=== PATIENT | female | born 1935 | race Caucasian/White ===

== ENCOUNTER → 2017-05-19 | Outpatient (CLI) | payer OTHER | LOC: RAD 11:50 | DX: M25.552 Pain in left hip (principal) ==

== ENCOUNTER → 2017-08-06 | Outpatient (CLI) | payer OTHER ==
[~2017-08-06] VITALS: Ht 162.6 cm; Wt 87.9 kg
[~2017-08-06] MED LIST: ALENDRONATE SOD70 MG PO; ASPIRIN81 M2 PO; BIOTIN5000 MC1 PO; CARVEDILOL3.125 MG PO; CENTRUM SILVER1 EAC4 PO; CITRACAL + D M1 EACH PO; COQ-10100 MG PO; CRANBERRY200 MG PO; GLUCOSAMINE &1 EACH PO; HYDROCODON-ACE1 EAC7 PO; LANTUS100 UNIT/M SUBQ; LIPITOR 20 MG T20 M1 PO; LISINOPRIL-HCT1 EACH PO; LUTEIN-ZEAXANT1 EAC1 PO; MAGOX 400400 MG PO; MEDROLDOSEPACK PO; METFORMIN HCL500 MG PO; OMEPRAZOLE 20 M20 M1 PO; POTASSIUM GLUC500 MG PO; PROBIOTIC1 EAC1 PO; RED YEAST RICE30 GM PO; SV FLAXSEED OI1 EACH PO; VITAMIN D3400 UNIT PO
--- NOTE | ~2017-08-06 | HPC ---
[facility] [place] [address] PAIN MANAGEMENT CONSULTATION Name: MATTYEPI LAURA Room #: REG TERRY Kaveh#: [id number] Admission: 08/06/17 Attend Phys: Dorene Francisco MD Discharge: Date of : 36 Report #: [id number] THIS REPORT FOR: //name// CC: Tristian Francisco DATE OF SERVICE: 08/06/2017 FOLLOWUP COMPLAINT: "Pain in my lower back and down into my left leg after opening the door." FOLLOWUP HISTORY: The patient is an 82-year-old female who has been referred to the Pain Clinic because of pain and discomfort which she is experiencing in her lower back and down into her left foot. She has not had pain similar to this in the past. She has noticed over the last few weeks worsening of her pain. An MRI was sought. She was told that she has had some narrowing of the disk in her back and the patient has been referred to the Pain Clinic for evaluation. She notes that the pain is worse when she is walking and sitting, and describes as burning, shooting, and sharp. Rates it as an 8/10 at this juncture. She is a bit concerned because of the pain radiating down into her hip. She is scheduled to go on a boat tour in [place] on 08/16/2017. Denies any bowel or bladder dysfunction. She has not had back surgery. The patient has undergone treatment with a chiropractor in the upper back and extremities. ALLERGIES: No known drug allergies. CURRENT MEDICATIONS: Multivitamin, Centrum Silver, vitamin D3 400 units, red rice extract 30 grams powder, potassium gluconate 500 mg daily, lactobacillus probiotic, omeprazole 20 mg capsule, magnesium 400 mg, lutein/zeaxanthin 20/1, biotin 5000 mcg, chondroitin and glucosamine, flaxseed oil, omega 1300 mg, cranberry extract 200 mg, CoQ10 100 mg, Citracal plus D maximum caplet, enteric aspirin 81 mg, insulin Lantus 35 units subq b.i.d., metformin 500 mg b.i.d. with meals, lisinopril/hydrochlorothiazide 10/12.5, Lipitor 20 mg, alendronate 70 mg tablets weekly, Coreg 3.125 b.i.d. with meals. PAST MEDICAL HISTORY: Diabetes, hypertension, joint disease/arthritis. PAST SURGICAL HISTORY: Appendectomy in 1942, knee surgery in 2010. SOCIAL HISTORY: She is retired, retired in 1999. DIAGNOSTIC DATA: MRI of the lumbar spine dated 07/26/2017: 1. L3-L4: Minimal disk narrowing without significant disk bulge or disk protrusion. Moderate facet arthropathy. Mild bilateral neural foraminal encroachment. Thecal sac 1.2 [place] [address] PAIN MANAGEMENT CONSULTATION Name: EPI STARR [id number] Admission: 08/06/17 Attend Phys: Dorene Francisco MD Discharge: Date of : 36 Report #: [id number] 2. L4-L5: Grade 1/2 anterolisthesis deformity. No spondylosis. Advanced facet arthropathy present. Findings result in moderate bilateral neural foraminal encroachment. Central canal reduced in AP diameter to 0.6 cm. 3. L5-S1: Very mild disk bulge. No disk protrusion. No central canal stenosis. Exiting neural foramen are maintained. Moderate facet arthropathy. REVIEW OF SYSTEMS: Generally good health, some weakness and fatigue, blurred/double vision/glaucoma/cataracts, varicose veins, numbness and tingling sensation down the posterior portion of the thigh, diabetes. PAIN ASSESSMENT: 1. History of osteoarthritis involving the right knee 2. Rheumatoid arthritis: The patient has not been treated for rheumatoid arthritis. 3. Height 5 feet 4 inches, weight 193 pounds, BMI is 33.2. 4. Vital signs: Blood pressure 149/61, pulse 82, respiratory rate 16, room air saturation 96%. 5. Pain intensity: 8/10. 6. Fall risk: The patient has not fallen in the last 3 months. 7. Blood thinner: The patient is not being treated by her physician with a blood thinning agent. 8. History of hypertension: The patient is being treated for hypertension. 9. Opioids greater than 6 weeks: The patient is not taking opioid medications. 10. Risk assessment tool. 11. Functional assessment tool: /70 which shows moderate problems with activities of daily living secondary to the pain. 12. Recreational drug use: The patient denies use of recreational drugs. 13. Tobacco: The patient denies use of tobacco. 14. Alcohol: The patient drinks one beverage weekly. PHYSICAL EXAMINATION: GENERAL: The patient is a well-developed, well-nourished white female. Appears her stated age. She is alert and oriented x 3. She has fluent speech. HEENT: Normocephalic, atraumatic. Extraocular eye muscles intact. Sclerae nonicteric. Hearing within normal limits. NECK: Without JVD or adenopathy. LUNGS: Clear to auscultation. HEART: S1, S2. MUSCULOSKELETAL: Without significant scoliosis, kyphosis or lordosis. Upper extremity muscle strength is judged to be 4+/5 for the major muscle groups in the upper extremity. Lower extremity muscle strength is judged to be 4+ for the lower muscle extremities. The patient has pain and discomfort in the low back area with pain radiating down the posterior portion of her leg with numbness and tingling in the L5-S1 dermatomal distribution. Straight leg raising is positive. [address] [address] PAIN MANAGEMENT CONSULTATION Name: EPI STARR Room #: REG TERRY Linn#: [id number] Admission: 08/06/17 Attend Phys: Dorene Francisco MD Discharge: Date of : 36 Report #: [id number] IMPRESSION: 1. Lumbar radiculopathy involving the left L5-S1 nerve root distribution with numbness, tingling and weakness. 2. Hypertension. 3. Diabetes. 4. Joint disease/arthritis. RECOMMENDATIONS: We discussed treatment options with the patient. Risks and benefits of an epidural steroid injection were again reviewed. A model was used to indicate the area of probable pathology. The patient's MRI results were discussed. The patient states that she understands. Possible complications of an epidural steroid injection to lumbar area were discussed. They include but are not limited to infection, increased muscle soreness, headache, bleeding, worsening of pain, improvement in pain, paralysis, spinal headache. The patient chooses to proceed. PROCEDURE NOTE: The patient was taken to the procedure room. She was assisted in getting on the examination table. Her back was sterilely prepped with a Betadine solution. Fluoroscopy using anterior, posterior as well as lateral viewing were performed. At the left lower paraspinous area at L5-S1, 0.25% bupivacaine was infiltrated. A 17-gauge Tuohy with loss of resistance technique was used to gain access to the epidural space. There was no CSF, heme or paresthesia. Total of 80 mg Depo-Medrol, 40 mg triamcinolone and 2 mL of 0.25% bupivacaine was injected. The patient tolerated the procedure well. There were no complications. The patient has been given a script for hydrocodone 30 mg. She will take the medications with her when she goes on her trip to [place]. She will also be given a Medrol Dosepak to take should her pain recur while she is there. She will call us if she has any problems with her medications. We would like to thank you for letting us participate in her care. We hope she continues to improve. By: [id number] Dorene Francisco MD /nt
[2017-08-06 12:50] VITALS: BP 149/61
== END | disposition home or self-care (01) ==
LOC: PAIN 07:18
DX: M54.16 Radiculopathy, lumbar region (principal); G89.29 Other chronic pain; I10 Essential (primary) hypertension; E11.9 Type 2 diabetes mellitus without complications; M19.90 Unspecified osteoarthritis, unspecified site; Z90.49 Acquired absence of other specified parts of digestive tract; Z98.890 Other specified postprocedural states; Z79.899 Other long term (current) drug therapy; Z79.4 Long term (current) use of insulin; Z96.651 Presence of right artificial knee joint; Z79.82 Long term (current) use of aspirin

== ENCOUNTER → 2017-09-08 | Outpatient (CLI) | payer OTHER ==
[~2017-09-08] VITALS: Ht 162.6 cm; Wt 86.5 kg
--- NOTE | ~2017-09-08 | HPC ---
[facility] [place] [address] PAIN MANAGEMENT CONSULTATION Name: MATTYEPI LAURA Room #: REG TERRY Linn#: [id number] Admission: 09/08/17 Attend Phys: Dorene Francisco MD Discharge: Date of : 36 Report #: [id number] THIS REPORT FOR: //name// CC: Tristian Francisco DATE OF SERVICE: 09/08/2017 FOLLOWUP COMPLAINT: Low back and left leg pain. HISTORY OF PRESENT ILLNESS: The patient is an 82-year-old female who has been seen in the Pain Clinic because of pain and discomfort, which has been radiating down into her left foot. She has noticed that the pain had worsened over the last few weeks. She notes that her pain is worse when she is walking and sometimes sitting. It is a burning, sharp and shooting discomfort. She rates the pain as an 8/10. She has undergone an epidural steroid injection at the last visit and gleaned benefit from that. She has noticed that her pain decreased from 8-10 down to 3-4 at this juncture. She notes that the pain continues to radiate down her left leg to the bottom of her foot. She continues to note some burning, shooting discomfort. Pain improves when she sits and has noted some improvement with placement of heat. She would like to proceed with another epidural steroid injection to see whether or not things would continue to improve. She has not had back surgery. ALLERGIES: No known drug allergies. CURRENT MEDICATIONS: Multivitamin, Centrum Silver, vitamin D3 400 units, red rice extract 30 grams powder, potassium glutamate 500 mg daily, lactobacillus as a probiotic, omeprazole 20 mg capsules, magnesium 400 mg, Lutein/Zeaxanthin 20/1, Biotin 5000 mcg, chondroitin and glucosamine, flax oil, omega 1300 mg, cranberry extract 200 mg, CoQ10 100 mg, Citracal Plus D Maximum caplet, enteric aspirin 81 mg, insulin Lantus 35 units subcutaneously b.i.d., metformin 500 mg b.i.d. with meals, lisinopril/hydrochlorothiazide 10/12.5, Lipitor 20 mg, alendronate 70 mg weekly, Coreg 3.125 b.i.d. with meals. PAIN CLINIC ASSESSMENT: 1. History of osteoarthritis involving the right knee rheumatoid arthritis. The patient is not being treated for rheumatoid arthritis. 2. Height 5 feet 4 inches, weight 190 pounds, BMI is 32.7. 3. Vital signs: Blood pressure is 130/66, pulse is 77, respiratory rate 16, room air saturation 96%. 4. Pain intensity: 3-4/10. 5. Fall risk: The patient has not fallen in the last 3 months. 6. Blood thinner: The patient is not on a blood thinning medication. 7. Hypertension: The patient is not being treated for hypertension. 8. Opioid therapy greater than 6 weeks: The patient is not on opioid [address] [address] PAIN MANAGEMENT CONSULTATION Name: EPI STARR Room #: REG TERRY Linn#: [id number] Admission: 09/08/17 Attend Phys: Dorene Francisco MD Discharge: Date of : 36 Report #: [id number] medication. 9. Risk assessment tool: Low for opioid use. 10. Functional assessment tool: . 11. Recreational drug use: The patient denies use of recreational drugs. 12. Tobacco: The patient has never smoked. 13. Alcohol: The patient denies use of alcoholic beverages. PHYSICAL EXAMINATION: GENERAL: The patient is a well-developed, well-nourished white female. She appears her stated age. She is alert and oriented x 3. Speech is fluent. HEENT: Normocephalic, atraumatic. Extraocular eye muscles intact. Sclerae nonicteric. Hearing within normal limits. NECK: Without JVD or adenopathy. LUNGS: Clear to auscultation, without rales or rhonchi. HEART: S1, S2. MUSCULOSKELETAL: Without significant scoliosis, kyphosis, or lordosis. Upper extremity muscle strength is judged to be 4+/5 for the major muscle groups with symmetry. Lower extremity muscle strength is judged to be 4+ for the major muscle groups in the lower extremity. The patient has pain and discomfort in the low back area with pain that is radiating down the posterior portion of her left leg with numbness and tingling in the L5-S1 dermatomal distribution. Straight leg raise is positive on the left. IMPRESSION: 1. Lumbar radiculopathy involving the L5-S1 nerve root distribution with numbness, tingling and weakness. 2. Hypertension. 3. Diabetes. 4. Joint disease/arthritis. RECOMMENDATIONS: We discussed treatment options with the patient. Risks and benefits of an epidural steroid injection were again reviewed. Possible complications of the procedure were discussed. The patient would like to proceed with another epidural steroid injection to help quell her pain and discomfort. We discussed the risks and benefits of the procedure, which could include but are not limited to infection, increased muscle soreness, headache, bleeding, worsening of pain, no improvement in pain, paralysis. The patient elects to proceed. PROCEDURE NOTE: The patient was assisted in getting on the examination table. She was placed in the prone position. Her back was sterilely prepped at the L5-S1 area using Betadine solution. A pillow was placed under her abdomen for bolstering an improvement in positioning. Fluoroscopy using anterior, posterior as well as lateral approach was used. The left paraspinous area was identified. This area was then infiltrated with 0.25% bupivacaine. A total of 80 mg Depo-Medrol, 40 mg triamcinolone and 2 mL of 0.25% bupivacaine was injected. [facility] [place] [address] PAIN MANAGEMENT CONSULTATION Name: EPI STARR Room #: REG [facility] [id number] Admission: 09/08/17 Attend Phys: Dorene Francisco MD Discharge: Date of : 36 Report #: [id number] The patient tolerated the procedure well. There were no complications. She remained in the Pain Clinic for an appropriate amount of time. She will follow up in the future as needed. A total of 6 seconds fluoroscopy time was used. We would like to thank you for letting us participate in her care. By: [id number] Dorene Francisco MD /nt
[2017-09-08 08:13] VITALS: BP 130/66
== END | disposition home or self-care (01) ==
LOC: PAIN 06:32
DX: M54.16 Radiculopathy, lumbar region (principal); G89.29 Other chronic pain; I10 Essential (primary) hypertension; E11.9 Type 2 diabetes mellitus without complications; M19.90 Unspecified osteoarthritis, unspecified site; Z79.899 Other long term (current) drug therapy; Z79.4 Long term (current) use of insulin; Z79.82 Long term (current) use of aspirin

== ENCOUNTER → 2018-04-27 | Outpatient (CLI) | payer OTHER ==
[~2018-04-27] VITALS: Ht 162.6 cm; Wt 88.4 kg
[2018-04-27 13:41] VITALS: BP 125/49
--- NOTE | 2018-04-27 13:53 | NUR ---
Pain Clinic Assessment: 1. History of Osteoarthritis: History of Rheumatoid Arthritis: 2. Height: 5 ft. 4 in. 162.6 cm. Weight: 194.8 lb. oz. 88.361 kg. Patient's BMI: 33.4 3. Vital Signs: BP: 125/49 Pulse: 98 Resp: 16 Temp: 02 Sat: 72 ECG Mon: 4. Pain Intensity: 8-9 5. Fall Risk: Dizziness: N Needs help standing or walking: N Fallen in the last 3 months: N Fall risk comments: 6. Patient on Blood Thinner: None 7. History of Hypertension: Y 8. Opioid Therapy greater than 6 weeks: Opiate Contract Signed: 9. Risk Assessment Tool Provided: LOW 10. Functional Assessment Tool: 11. Recreational Drug Use: Never Drug Type: Tobacco Use: Never Smoker Tobacco Type: Amount or Packs/day: How Many Years: Alcohol Use: No Frequency: Quant:
--- NOTE | 2018-05-04 08:28 | HPC ---
[facility] [place] [address] PAIN MANAGEMENT CONSULTATION Name: MATTYEPI LAURA Room #: REG TERRY Linn#: [id number] Admission: 04/27/18 ������������������ Attend Phys: Dorene Francisco MD Discharge: ������������������ Date of : 36 Report #: [id number] THIS REPORT FOR: //name// CC: Tristian Francisco DATE OF SERVICE: 04/27/2018 CHIEF COMPLAINT: Pain in the low back radiating down into the left leg. HISTORY OF PRESENT ILLNESS: The patient is an 82-year-old female who has been seen in the pain clinic in the past because of lumbar radiculopathy. She has undergone epidural steroid injections. She has gleaned benefits from these. Rates her pain today as 8-9/10. She has been experiencing pain in her low back with pain that is radiating down into the posterior portion of her leg with numbness, weakness and sensory changes. Notes that she is having some worsening of her pain when she is lifting her leg as well as when walking. She has difficulty bending down. Notes that heat and massage can be helpful. She has undergone epidural steroid injections in the past and gleaned significant improvement. She has returned today for another injection. She has had no complication from the past injections. ALLERGIES: No known drug allergies. CURRENT MEDICATIONS: Hydrocodone 5/325 p.r.n., multivitamin, Centrum Silver tablets, vitamin D3 400 units, red yeast extract 30 grams powder, potassium 500 mg, lactobacillus probiotic, omeprazole 20 mg, magnesium 400 mg, lutein-zeaxanthin 20/1, Biotin 5000 mg, chondroitin, glucosamine, flax seed oil 1300 mg, cranberry extract 200 mg, CoQ10 100 mg, Citracal plus D maximum caplet, aspirin 81 mg, insulin Lantus 35 units subq b.i.d., metformin 500 mg b.i.d., lisinopril/hydrochlorothiazide 10/12.5, Lipitor 20 mg, alendronate sodium 70 mg weekly, Coreg 3.125 mg b.i.d. PAIN CLINIC ASSESSMENT/PQRS: 1. Osteoarthritis. The patient has osteoarthritic changes in her right knee. 2. The patient is not being treated for rheumatoid arthritis. 3. Height 5 feet 4 inches, weight 194 pounds, BMI 33.4. 4. Vital Signs: Blood pressure is 125/49, respiratory rate 16, pulse 72, oxygen saturation 98%. 5. Pain intensity 8-9/10. 6. Fall risk. The patient has not fallen in the last 3 months. 7. Blood thinner. The patient is not on a blood thinning medication. 8. Hypertension. The patient is being treated for hypertension. 9. Opioid greater than 6 weeks. The patient receives her medications from one source. 10. Risk assessment tool, [place] [address] PAIN MANAGEMENT CONSULTATION Name: EPI STARR LAURA Room #: REG [facility] Kaveh#: [id number] Admission: 04/27/18 ������������������ Attend Phys: Dorene Francisco MD Discharge: ������������������ Date of : 36 Report #: [id number] 11. Functional assessment tool, . 12. Recreational drug use. The patient denies use of recreational drugs. 13. Tobacco: The patient stopped smoking 35 years ago. 14. Alcohol: The patient denies use of alcoholic beverages except on occasion. PHYSICAL EXAMINATION: GENERAL: The patient is a well-developed, well-nourished, somewhat obese, white female. Appears her stated age. She is alert and oriented x 3. Affect is appropriate. Speech is fluent. HEENT: Normocephalic, atraumatic. Extraocular eye muscles intact. Sclerae nonicteric. Mucous membranes are moist. NECK: Without adenopathy or JVD. LUNGS: Clear to auscultation without rhonchi or rales. HEART: S1, S2. MUSCULOSKELETAL: Without significant scoliosis, kyphosis, or lordosis. Upper extremity muscle strength is judged to be 4+/5 for the major muscle groups. Lower extremity muscle groups judged to be 5-/5 for the major muscle groups. The patient has a positive straight leg raise on the left. Has pain that is radiating down the L5-S1 dermatomal distribution. IMPRESSION: 1. Lumbar radiculopathy involving the left L5-S1 nerve root distribution with numbness, tingling, and weakness. 2. Hypertension. 3. Diabetes. 4. Joint disease/arthritis. RECOMMENDATIONS: We discussed treatment options with the patient. Risks and benefits of an epidural steroid injection were discussed. The patient feels that the injections in the past have been helpful. She did take a Medrol Dosepak in the interim. Did note that her blood sugars to go up somewhat. She did note improvement after taking the Medrol Dosepak. She would like to proceed with an epidural injection. Again, the risks and benefits of the procedure, which could include but are not limited to infection, increased muscle soreness, headache, bleeding, worsening of pain, nerve damage, paralysis were reviewed. The patient elects to proceed. PROCEDURE NOTE: The patient was taken to the procedure area. She was assisted in getting on the examination table. Her back was sterilely prepped with a Betadine solution. Fluoroscopy using anterior, posterior as well as lateral viewing were implemented. Her back was sterilely prepped with a Betadine solution. At L5-S1, 0.25% bupivacaine was infiltrated. This was done using a 25-gauge needle. A 17-gauge Tuohy with loss of resistance technique using the midline approach was undertaken. There was no CSF, heme or paresthesia. Aspiration was negative. A total of 80 mg Depo-Medrol, 40 mg triamcinolone and 2 mL of 0.25% bupivacaine was injected. The patient tolerated the procedure [address] [address] PAIN MANAGEMENT CONSULTATION Name: MATTYEPI LAURA Room #: REG [facility]#: [id number] Admission: 04/27/18 ������������������ Attend Phys: Dorene Francisco MD Discharge: ������������������ Date of : 36 Report #: [id number] well. There were no complications. She remained in the Pain Clinic for an appropriate amount of time. Total of 8 seconds fluoroscopy time was used. The patient's pain decreased from 8 to 2 at the time of discharge. She will follow up in the future. She will monitor her blood sugars. We would like to thank you for letting us participate in her care. We hope she continues to improve. ��������������������������������������������� <ELECTRONICALLY SIGNED> ���������������������������������������� By: Dorene Francisco MD ��������������������������������������������� 05/04/18 0828 [id number] Dorene Francisco MD /PMT
== END | disposition home or self-care (01) ==
LOC: PAIN 07:14
DX: M54.16 Radiculopathy, lumbar region (principal); G89.29 Other chronic pain; I10 Essential (primary) hypertension; E11.9 Type 2 diabetes mellitus without complications; M19.90 Unspecified osteoarthritis, unspecified site; Z87.891 Personal history of nicotine dependence; Z79.891 Long term (current) use of opiate analgesic; Z79.4 Long term (current) use of insulin; Z79.82 Long term (current) use of aspirin; Z79.899 Other long term (current) drug therapy

== ENCOUNTER → 2018-07-25 | Outpatient (CLI) | payer OTHER ==
[~2018-07-25] VITALS: Ht 162.6 cm; Wt 87.7 kg
--- NOTE | ~2018-07-25 | HPC ---
[facility] [address] [place] [address] PAIN MANAGEMENT CONSULTATION Name: EPI STARR Room #: REG TERRY Kimberley.#: [id number] Admission: 07/25/18 ������������������ Attend Phys: Joseluis Marrufo MD Discharge: ������������������ Date of : 36 Report #: [id number] THIS REPORT FOR: //name// CC: Tristian Marrufo DATE OF SERVICE: 07/25/2018 Followup visit for chronic low back pain with radiculopathy left L5-S1 distribution. The patient returns to pain clinic today in followup, a second opinion regarding her questions of radiofrequency. Dr. Francisco has asked me to see her since I perform the procedure and he does not. The patient says that her last epidural injection provided pain relief, but it was only temporary and the pain has returned, maybe she is still some better, but scores her pain as an 8/10. She describes her pain as left buttock and hip and it radiates all the way down into the L5 distribution of the calf and foot. Back pain is only secondary to the nerve radicular pain. It is worse with standing, stretching and walking. She gets some relief from medication, heat, recliner and also saw relief with her epidural injection. PAST MEDICAL HISTORY: Significant for right knee replacement in 2010. SOCIAL HISTORY: It is important. She has a lot of activity planned over the course of the next several months. She and her significant other plan to take a trip to [place]. They also have other trips planned, traveling across the [place] by car. She needs to have better pain relief in order to provide comfort for these upcoming events. MEDICATIONS: Reviewed and reconciled, remain unchanged. PHYSICAL EXAMINATION: She is 5 feet 4 inches with a BMI of 33.2. Her blood pressure is 110/56, heart rate 74, 97, pain intensity 8/10. Her chest is clear and her cardiac rhythm is regular. Musculoskeletal review is normal alignment. No pain with forward flexion, extension, rotation, or [id number] tilt. Strength is normal within the lower extremities. No weakness noted in any of the major muscle groups. She has a marked straight leg raising on the left at 30 degrees in the supine position. This reproduces pain quite clearly to the L5-S1 distribution. IMPRESSION: Chronic low back pain with radiculopathy involving L5-S1 [facility] [address] [place] [address] PAIN MANAGEMENT CONSULTATION Name: EPI STARR Room #: REG CELIADeanne Linn#: [id number] Admission: 07/25/18 ������������������ Attend Phys: Joseluis Marrufo MD Discharge: ������������������ Date of : 36 Report #: [id number] distribution. I have reviewed her x-rays, which show significant spinal stenosis at L4-L5 at 6 mm. This is the most likely cause of her persistent radiculopathy. RECOMMENDATION: 1. I spent 25 minutes in consultation today talking about different options for treatment. I have sent her to physical therapy as an initial test; she has not had physical therapy to this point. 2. We talked a bit about medication; she would like to avoid any stronger pain medication. 3. We have talked about a transforaminal epidural injection focusing on the L5-S1 neural foramen. This would then pass medicine along the lateral recess generally in the cephalad direction and would be helpful for her neuroforaminal stenosis. 4. We talked about radiofrequency, which was her primary question for today. I do not believe that it should be helpful for her because she has radicular pain. It might help some for her back, but her primary complaint is clearly radicular and I think that it would be a waste of time for her to go through this laborious process. 5. We talked about advanced treatments, which would include surgery, both minimally invasive and a traditional small incision laminectomy that might provide room at the stenotic area. We also talked a bit about the different procedures including mild and the Vertos procedure, which are currently being utilized for spinal stenosis. She might be a candidate for one of these. 6. Finally, we discussed spinal cord stimulation briefly and she was given information. She would be a candidate based upon her symptoms, I believe. PLAN: Is for her to initiate therapy as soon as possible and return to the pain clinic for transforaminal epidural injection. We talked about using a transforaminal or a midline epidural injection before her [place] trip to increase the likelihood that she will be able to enjoy her trip. A 25-minute consultation visit. ��������������������������������������������� ���������������������������������������� By: ��������������������������������������������� [id number] Joseluis Marrufo MD /nt
[2018-07-25 10:36] VITALS: BP 110/56
--- NOTE | 2018-07-25 10:53 | NUR ---
Pain Clinic Assessment: 1. History of Osteoarthritis: HANDS History of Rheumatoid Arthritis: Not Applicable 2. Height: 5 ft. 4 in. 162.6 cm. Weight: 193.4 lb. oz. 87.726 kg. Patient's BMI: 33.2 3. Vital Signs: BP: 110/56 Pulse: 74 Resp: 16 Temp: 02 Sat: 97 ECG Mon: 4. Pain Intensity: 8 5. Fall Risk: Dizziness: N Needs help standing or walking: N Fallen in the last 3 months: Y Fall risk comments: 6. Patient on Blood Thinner: None 7. History of Hypertension: Y 8. Opioid Therapy greater than 6 weeks: N Opiate Contract Signed: 9. Risk Assessment Tool Provided: LOW 10. Functional Assessment Tool: 11. Recreational Drug Use: Never Drug Type: Tobacco Use: Never Smoker Tobacco Type: Amount or Packs/day: How Many Years: Alcohol Use: No Frequency: Quant:
== END ==
LOC: PAIN 06-30 06:54
DX: M48.061 Spinal stenosis, lumbar region without neurogenic claudication (principal); M54.16 Radiculopathy, lumbar region

== ENCOUNTER → 2018-09-12 | Outpatient (CLI) | payer OTHER ==
[~2018-09-12] VITALS: Ht 162.6 cm; Wt 87.1 kg
--- NOTE | ~2018-09-12 | HPC ---
[facility] [place] [address] PAIN MANAGEMENT CONSULTATION Name: MATTYEPI SNEEDANNETTE Room #: REG TERRY Linn#: [id number] Admission: 09/12/18 ������������������ Attend Phys: Joseluis Marrufo MD Discharge: ������������������ Date of : 36 Report #: [id number] THIS REPORT FOR: //name// CC: BERNARDA Marrufo DATE OF SERVICE: 09/12/2018 Followup visit for lumbar radiculopathy, left L5-S1 distribution. The patient returns to pain clinic today in between her trips. She is a traveler! She has multiple trips planned over the course of the next month or so. She responded beautifully to her last epidural injection with substantial reductions in pain in her low back radiating into her left hip and is here today for a second injection. We reviewed the injection and I have shown her the pictures. The stenotic area is at L4-L5. The injection at L5-S1 provided excellent cephalad spread through that stenotic area. We will repeat that again today. PQRS review is completed. 1. She has osteoarthritis of the hands, but denies other hip or knee problems today. 2. BMI is 32.9. She remains active and understands the interaction between weight and how her mobility affects pain. She will try to remain active. 3. VITAL SIGNS: Blood pressure 139/69, heart rate 64, respirations 16. 4. Pain intensity is 3/10 today and improvement. 5. She used a walking cane, but has not fallen in the last 3 months. Based upon her use of an assist device, I would consider her a fall risk, but she is cautious. 6. No blood thinners 7. History of hypertension. Again, under treatment with medication. All medications were reviewed and reconciled from the electronic medical record and she is diabetic. 8. She takes no opioid medications and has not signed an agreement. 9. Her opioid risk assessment tool has been completed and she is at low risk. 10. Functional assessment tool is . 11. She denies use of tobacco or alcohol. PHYSICAL EXAMINATION: GENERAL: She is pleasant, alert and oriented. VITAL SIGNS: As noted above. She moves independently from sitting to standing position, walks with mild antalgic features. CHEST: Clear. She breathes easily with no shortness of breath or dyspnea on exertion. CARDIAC: Rhythm is regular. [facility] [address] [place] [address] PAIN MANAGEMENT CONSULTATION Name: EPI STARR Room #: REG CLI [facility]#: [id number] Admission: 09/12/18 ������������������ Attend Phys: Joseluis Marrufo MD Discharge: ������������������ Date of : 36 Report #: [id number] MUSCULOSKELETAL: Tenderness across the low back with positive straight leg raising discomfort in the left hip. IMPRESSION: Lumbar radiculopathy secondary to spinal stenosis. Excellent improvement following an initial transforaminal epidural injection at L5-S1. She has an anterolisthesis grade 1 to grade 2 at L4-L5, creating a 0.6 mm stenosis. PROCEDURE: L5-S1 transforaminal epidural injection under fluoroscopic guidance. PROCEDURE: After informed consent, she was taken to fluoroscopic suite, placed prone, skin prepped with ChloraPrep. Skin was anesthetized over the L5-S1 neural foramen on the left. Using triplanar fluoroscopic views, I advanced needle into the neural foramen. A 0.25 mL of Omnipaque was used to demonstrate an excellent arthrogram. It was then followed by 60 mg of triamcinolone mixed in 3 mL of 0.5% lidocaine. She tolerated the procedure well. She was observed for 45 minutes and discharged from the recovery room in good condition. There were no complications. Follow up as needed. Further injections are not scheduled, but can be used as a tool in the future, certainly that aid her with her multiple vacation trips. ��������������������������������������������� ���������������������������������������� By: ��������������������������������������������� [id number] Joseluis Marrufo MD /nt
[2018-09-12 09:23] VITALS: BP 139/69
--- NOTE | 2018-09-12 09:26 | NUR ---
Pain Clinic Assessment: 1. History of Osteoarthritis: HANDS History of Rheumatoid Arthritis: Not Applicable 2. Height: 5 ft. 4 in. 162.6 cm. Weight: 192.0 lb. oz. 87.091 kg. Patient's BMI: 32.9 3. Vital Signs: BP: 139/69 Pulse: 64 Resp: 16 Temp: 02 Sat: 97 ECG Mon: 4. Pain Intensity: 3 5. Fall Risk: Dizziness: N Needs help standing or walking: Y Fallen in the last 3 months: N Fall risk comments: USE CANE 6. Patient on Blood Thinner: None 7. History of Hypertension: Y 8. Opioid Therapy greater than 6 weeks: N Opiate Contract Signed: 9. Risk Assessment Tool Provided: LOW 10. Functional Assessment Tool: 11. Recreational Drug Use: Never Drug Type: Tobacco Use: Never Smoker Tobacco Type: Amount or Packs/day: How Many Years: Alcohol Use: No Frequency: Quant:
== END | disposition home or self-care (01) ==
LOC: PAIN 06:46
DX: M48.061 Spinal stenosis, lumbar region without neurogenic claudication (principal); M54.16 Radiculopathy, lumbar region; M43.16 Spondylolisthesis, lumbar region; G89.29 Other chronic pain; I10 Essential (primary) hypertension; M19.041 Primary osteoarthritis, right hand; M19.042 Primary osteoarthritis, left hand; Z79.82 Long term (current) use of aspirin; Z79.899 Other long term (current) drug therapy; Z98.890 Other specified postprocedural states

== ENCOUNTER → 2019-03-02 | Outpatient (CLI) | payer OTHER ==
[~2019-03-02] VITALS: Ht 162.6 cm; Wt 90.3 kg
[~2019-03-02] MED LIST changes: +COZAAR 50 MG TA50 M1 PO; +MELOXICAM7.5 MG PO
[2019-03-02 10:22] VITALS: BP 127/61
--- NOTE | 2019-03-02 10:33 | NUR ---
Pain Clinic Assessment: 1. History of Osteoarthritis: HANDS TOES History of Rheumatoid Arthritis: DENIES 2. Height: 5 ft. 4 in. 162.6 cm. Weight: 199.0 lb. oz. 90.266 kg. Patient's BMI: 34.1 3. Vital Signs: BP: 127/61 Pulse: 80 Resp: 15 Temp: 02 Sat: 95 ECG Mon: 4. Pain Intensity: 5 5. Fall Risk: Dizziness: N Needs help standing or walking: N Fallen in the last 3 months: N Fall risk comments: USE CANE 6. Patient on Blood Thinner: None 7. History of Hypertension: Y 8. Opioid Therapy greater than 6 weeks: N Opiate Contract Signed: 9. Risk Assessment Tool Provided: 0 LOW 10. Functional Assessment Tool: 11. Recreational Drug Use: Never Drug Type: Tobacco Use: Never Smoker Tobacco Type: Amount or Packs/day: How Many Years: Alcohol Use: No Frequency: Quant:
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
== END | disposition home or self-care (01) ==
LOC: RAD 06:43 → PAIN 06:43
DX: M54.16 Radiculopathy, lumbar region (principal); M43.16 Spondylolisthesis, lumbar region; G89.29 Other chronic pain; M19.90 Unspecified osteoarthritis, unspecified site; I10 Essential (primary) hypertension; Z98.890 Other specified postprocedural states; Z79.899 Other long term (current) drug therapy; Z79.82 Long term (current) use of aspirin

== ENCOUNTER → 2019-05-18 | Outpatient (CLI) | payer OTHER | LOC: SJCVC 13:55 → SJCVCIMAG 13:55 | DX: I08.3 Combined rheumatic disorders of mitral, aortic and tricuspid valves (principal); I11.9 Hypertensive heart disease without heart failure; R01.1 Cardiac murmur, unspecified; E78.00 Pure hypercholesterolemia, unspecified; E11.9 Type 2 diabetes mellitus without complications; E78.1 Pure hyperglyceridemia; Z79.4 Long term (current) use of insulin ==

== ENCOUNTER → 2019-05-25 | Outpatient (CLI) | payer OTHER | LOC: SJCVCIMAG 09:23 | DX: I10 Essential (primary) hypertension (principal); E78.5 Hyperlipidemia, unspecified; E11.9 Type 2 diabetes mellitus without complications; Z79.4 Long term (current) use of insulin; Z87.891 Personal history of nicotine dependence ==

== ENCOUNTER → 2019-09-04 | Outpatient (CLI) | payer OTHER ==
[~2019-09-04] VITALS: Ht 162.6 cm; Wt 92.1 kg
[2019-09-04 08:49] VITALS: BP 143/77
--- NOTE | 2019-09-04 08:54 | NUR ---
Pain Clinic Assessment: 1. History of Osteoarthritis: HANDS TOES History of Rheumatoid Arthritis: DENIES 2. Height: 5 ft. 4 in. 162.6 cm. Weight: 203.0 lb. oz. 92.080 kg. Patient's BMI: 34.8 3. Vital Signs: BP: 143/77 Pulse: 80 Resp: 16 Temp: 02 Sat: 98 ECG Mon: 4. Pain Intensity: 3 5. Fall Risk: Dizziness: N Needs help standing or walking: N Fallen in the last 3 months: N Fall risk comments: USE CANE 6. Patient on Blood Thinner: None 7. History of Hypertension: Y 8. Opioid Therapy greater than 6 weeks: N Opiate Contract Signed: 9. Risk Assessment Tool Provided: 0 LOW 10. Functional Assessment Tool: 11. Recreational Drug Use: Never Drug Type: Tobacco Use: Never Smoker Tobacco Type: Amount or Packs/day: How Many Years: Alcohol Use: No Frequency: Quant:
--- NOTE | 2019-09-07 09:57 | HPC ---
[facility] [address] [address] [place] [address] PAIN MANAGEMENT CONSULTATION Name: EPI STARR Room #: REG TERRY Kaveh#: [id number] Admission: 09/04/19 Attend Phys: Joseluis Marrufo MD Discharge: Date of : 36 Report #: [id number] THIS REPORT FOR: cc: Tristian Gutierrez MD, FAAFP, FACEP, Douglas MD FAAFP FACEP Morgan, Richard L. MD ~ CC: Tristian Marrufo DATE OF SERVICE: 09/04/2019 Followup visit for chronic and recurrent lumbar radiculopathy, L5-S1 distribution, L4-L5 grade 1-2 anterolisthesis. The patient was last seen 7 months ago. She responded very favorably to transforaminal epidural injection for recurring lumbar radiculopathy that follows an L4-L5, L5-S1 distribution. We reviewed her injection and her x-rays. She is very active 84-year-old. She enjoys traveling. She and her have a trip planned in their RV. They travel last year to [place] after she had an injection. She does not plan to travel internationally again even if there was COVID control. They are hoping to see more in [place] and that their mobile home and is up to speed and ready to go. She is hopeful that I can provide her with some relief from her radicular pain that shoots down into the leg and calf. It is worse with standing and walking. She has been using an assist device. PQRS review shows that she does have some osteoarthritis involving hands and feet. BMI is 34.8, slight elevation. She is trying to control weight. Blood pressure is 143/77, heart rate 80, respirations 16, O2 sat is 98, pain intensity 3/10. She does use an assist device with a cane to prevent falls and she has not fallen in the last 3 months. Primary care physician provides her with antihypertensive medication. I reviewed all of her medications. She takes no opioids. She is not on a blood thinner. As we do for all patients, I asked to her evaluate her risk assessment tool for addiction and score is 0. In keeping with our conversation on her activity level, her functional assessment tool is 18/70 suggesting that she is able to manage pretty well with her intractable pain. PHYSICAL EXAMINATION: VITAL SIGNS: As noted. GENERAL: She walks with a cane with antalgic gait. She has pain that shoots down her right leg with positive straight leg raising. She has no numbness. Mild weakness, which may also be guarding. IMPRESSION: Lumbar radiculopathy, left L5-S1 with anterolisthesis grade 1-2 [place] [address] PAIN MANAGEMENT CONSULTATION Name: EPI STARR Room #: REG TERRY Linn#: [id number] Admission: 09/04/19 Attend Phys: Joseluis Marrufo MD Discharge: Date of : 36 Report #: [id number] PROCEDURE: L5-S1 transforaminal epidural injection under fluoroscopic guidance. After informed consent, she was taken to fluoroscopic suite, placed prone, skin prepped with ChloraPrep. Skin anesthetized over the L5-S1 neural foramen. Using triplanar fluoroscopic views, I advanced needle into the neural foramen. A 1 mL of Omnipaque was injected and excellent epidurogram was achieved. It was then followed by 3 mL of 0.5% lidocaine mixed with 60 mg of triamcinolone, a slight reduction due to her diabetes. She tolerated the procedure well. There were no complications. She was taken to recovery room in good condition and observed before discharge. Followup visit planned as needed. We did not schedule repeat injection for patients like her. <ELECTRONICALLY SIGNED> By: Joseluis Marrufo MD 09/07/19 0957 [id number] Joseulis Marrufo MD /nt
== END | disposition home or self-care (01) ==
LOC: PAIN 06:46
PROVIDERS: ATTEND Anesthesiology Pain Medicine
DX: M54.16 Radiculopathy, lumbar region (principal); Z79.899 Other long term (current) drug therapy

== ENCOUNTER → 2020-02-28 | Outpatient (CLI) | payer OTHER | LOC: SJCVC 10:53 | PROVIDERS: ATTEND Internal Medicine Cardiovascular Disease | DX: I08.0 Rheumatic disorders of both mitral and aortic valves (principal); I10 Essential (primary) hypertension; E78.5 Hyperlipidemia, unspecified; E11.9 Type 2 diabetes mellitus without complications; R01.1 Cardiac murmur, unspecified; Z79.4 Long term (current) use of insulin; Z87.891 Personal history of nicotine dependence; Z98.890 Other specified postprocedural states ==

== ENCOUNTER → 2020-05-30 | Outpatient (CLI) | payer OTHER ==
[~2020-05-30] VITALS: Ht 162.6 cm; Wt 92.7 kg
[~2020-05-30] MED LIST changes: +INVELTYS2.8 ML EA. EYE; +NOVOLIN N100 UNIT/1 INJECTION; +PREVAGEN PO; +TRULICITY1.5 MG/0.5 INJECTION; +VENTOLIN HFA 1818 GM INH
[2020-05-30 14:45] VITALS: BP 145/65
--- NOTE | 2020-05-30 15:06 | NUR ---
Pain Clinic Assessment: 1. History of Osteoarthritis: HANDS TOES History of Rheumatoid Arthritis: DENIES 2. Height: 5 ft. 4 in. 162.6 cm. Weight: 204.4 lb. oz. 92.715 kg. Patient's BMI: 35.1 3. Vital Signs: BP: 145/65 Pulse: 78 Resp: 22 Temp: 02 Sat: 97 ECG Mon: 4. Pain Intensity: 0 TO 10 5. Fall Risk: Dizziness: N Needs help standing or walking: Y Fallen in the last 3 months: N Fall risk comments: USE CANE 6. Patient on Blood Thinner: None 7. History of Hypertension: Y 8. Opioid Therapy greater than 6 weeks: N Opiate Contract Signed: 9. Risk Assessment Tool Provided: 0 LOW 10. Functional Assessment Tool: 11. Recreational Drug Use: Never Drug Type: Tobacco Use: Former Smoker Tobacco Type: Amount or Packs/day: How Many Years: Alcohol Use: Yes Frequency: Special Occasions Quant: 1
== END | disposition home or self-care (01) ==
LOC: PAIN 12:15
PROVIDERS: ATTEND Anesthesiology Pain Medicine
DX: M54.16 Radiculopathy, lumbar region (principal); G89.29 Other chronic pain; M43.16 Spondylolisthesis, lumbar region; I10 Essential (primary) hypertension; M19.90 Unspecified osteoarthritis, unspecified site; Z98.890 Other specified postprocedural states; Z79.899 Other long term (current) drug therapy; Z79.891 Long term (current) use of opiate analgesic

== ENCOUNTER → 2020-09-26 | Outpatient (CLI) | payer OTHER | LOC: SJCVC 09:50 | PROVIDERS: ATTEND Internal Medicine Cardiovascular Disease | DX: I35.0 Nonrheumatic aortic (valve) stenosis (principal); I10 Essential (primary) hypertension; E78.5 Hyperlipidemia, unspecified; E11.9 Type 2 diabetes mellitus without complications; Z79.4 Long term (current) use of insulin; K21.9 Gastro-esophageal reflux disease without esophagitis; Z79.82 Long term (current) use of aspirin; Z79.899 Other long term (current) drug therapy; Z87.891 Personal history of nicotine dependence ==